=== PATIENT | male | born 1990 | race Caucasian/White ===

== ENCOUNTER 2018-12-11 12:07 | Emergency (ER) | payer OTHER ==
[~2018-12-11] VITALS: Ht 185.4 cm; Wt 77.1 kg
[~2018-12-11 12:07] MED LIST: FLEXERIL PO; HYDROCODON-ACE1 EAC7 PO; HYDROCODON-ACE1 EACH PO; HYDROCODONE-AP1 EAC6 PO; IBUPROFEN 800800 M1 PO; IBUPROFEN 800800 MG PO; MEDROLDOSEPACK PO; NOHOMEMEDICATIONS; NORCO 5-325 TA1 EAC1 PO; NORCO 5-325 TA1 EACH PO; PERCOCET 5-3251 EACH PO; ROBAXIN500 MG PO; ULTRAM 50MG TAB50 MG PO
[2018-12-11 13:25] VITALS: BP 122/54
== END 2018-12-11 13:25 | disposition short-term general hospital (02) ==
LOC: M.ERS 12:07
DX: S01.312A Laceration without foreign body of left ear, initial encounter (principal); F17.200 Nicotine dependence, unspecified, uncomplicated; W54.0XXA Bitten by dog, initial encounter; Y92.89 Other specified places as the place of occurrence of the external cause; Y93.89 Activity, other specified; Y99.8 Other external cause status

== ENCOUNTER 2019-11-21 15:27 | Emergency (ER) | payer OTHER ==
[~2019-11-21] VITALS: Ht 182.9 cm; Wt 79.4 kg
[2019-11-21 15:48] LABS: URINE BILIRUBIN NEGATIVE (Negative); URINE BLOOD NEGATIVE (Negative); URINE CLARITY CLEAR; URINE COLOR YELLOW; URINE GLUCOSE-RANDOM NEGATIVE (Negative); URINE KETONES NEGATIVE (Negative); URINE LEUKOCYTES-REFLEX NEGATIVE (Negative); URINE NITRITE-REFLEX NEGATIVE (Negative); URINE PROTEIN NEGATIVE (Negative); URINE UROBILINOGEN 0.2 E.U./dl (0.2-1.0)
[2019-11-21 16:01] LABS: AMP/METHAMP Negative (Negative); BARBITURATES Negative (Negative); BENZODIAZEPINES Negative (Negative); COCAINE Negative (Negative); METHADONE Negative (Negative); OPIATES Negative (Negative); PCP Negative (Negative); THC POSITIVE (Negative)
[2019-11-21 16:13] LABS: ABSOLUTE BASOPHILS 0.1 thou/uL (0.0-0.2); ABSOLUTE EOSINOPHILS 0.1 thou/uL (0.0-0.7); ABSOLUTE LYMPHOCYTES 2.2 thou/uL (0.8-5.3); ABSOLUTE MONOCYTES 0.6 thou/uL (0.0-1.2); ABSOLUTE NEUTROPHILS 5.8 thou/uL (1.6-8.1); EOSINOPHILS 0.9 %; HEMATOCRIT 42.2 % (42.0-52.0); HEMOGLOBIN 14.8 gm/dL (14.0-18.0); LYMPHOCYTES 25.1 %; MCH 33.4 pg (26.0-34.0); MCV 95.2 fL (80.0-100.0); MONOCYTES 6.9 %; MPV 7.9 fl. (7.2-11.1); NUCLEATED RBCS 0 /100WBC; PLATELET COUNT* 247 thou/uL (150-400); POLYS 66.1 %; RBC 4.43 mil/uL (4.50-6.00); RDW-CV 12.9 % (10.5-14.5); WBC 8.8 thou/uL (4.0-11.0)
[2019-11-21 16:31] LABS: CALCIUM 9.3 mg/dL (8.5-10.1); POTASSIUM 4.7 mmol/L (3.5-5.1)
[2019-11-21 16:36] LABS: ACETAMINOPHEN < 2 ug/mL (10-30); ALBUMIN 4.3 g/dL (3.4-5.0); ALCOHOL < 10 mg/dL (<10); SALICYLATE 5.5 mg/dL (2.8-20.0); TOTAL BILIRUBIN 0.6 mg/dL (<0.1-1.0); TOTAL PROTEIN 8.2 g/dL (6.4-8.2)
[2019-11-21 21:55] VITALS: BP 120/95
== END 2019-11-21 21:55 ==
LOC: M.ERS 15:27
PROVIDERS: Emergency Medicine
DX: R45.851 Suicidal ideations (principal); F17.200 Nicotine dependence, unspecified, uncomplicated; Z98.890 Other specified postprocedural states

== ENCOUNTER 2020-12-20 19:33 | Emergency (ER) | payer OTHER ==
[~2020-12-20] VITALS: Ht 182.9 cm; Wt 77.1 kg
[2020-12-20] MEDS ORDERED: REMERON15 M2 PO (19:50)
[2020-12-20 20:17] LABS: URINE BILIRUBIN NEGATIVE (Negative); URINE BLOOD NEGATIVE (Negative); URINE CLARITY CLEAR; URINE COLOR YELLOW; URINE GLUCOSE-RANDOM NEGATIVE (Negative); URINE KETONES NEGATIVE (Negative); URINE LEUKOCYTES NEGATIVE (Negative); URINE NITRITE NEGATIVE (Negative); URINE PROTEIN NEGATIVE (Negative); URINE UROBILINOGEN 0.2 E.U./dl (0.2-1.0)
[2020-12-20 20:27] LABS: AMP/METHAMP Negative (Negative); BARBITURATES Negative (Negative); BENZODIAZEPINES Negative (Negative); COCAINE Negative (Negative); METHADONE Negative (Negative); OPIATES Negative (Negative); PCP Negative (Negative); THC POSITIVE (Negative)
[2020-12-20 20:46] LABS: ABSOLUTE EOSINOPHILS 0.2 thou/uL (0.0-0.7); ABSOLUTE LYMPHOCYTES 2.4 thou/uL (0.8-5.3); ABSOLUTE MONOCYTES 0.8 thou/uL (0.0-1.2); ABSOLUTE NEUTROPHILS 7.6 thou/uL (1.6-8.1); BASOPHILS 0.4 %; EOSINOPHILS 1.8 %; HEMATOCRIT 39.9 % (42.0-52.0); HEMOGLOBIN 13.4 gm/dL (14.0-18.0); MCH 31.4 pg (26.0-34.0); MCHC 33.5 g/dL (28.0-37.0); MCV 93.7 fL (80.0-100.0); MONOCYTES 7.1 %; MPV 7.5 fl. (7.2-11.1); NUCLEATED RBCS 0 /100WBC; PLATELET COUNT* 263 thou/uL (150-400); POLYS 68.7 %; RBC 4.26 mil/uL (4.50-6.00); RDW-CV 13.5 % (10.5-14.5)
[2020-12-20 20:50] LABS: CALCIUM 9.2 mg/dL (8.5-10.1); CREATININE 0.9 mg/dL (0.6-1.3); POTASSIUM 3.6 mmol/L (3.5-5.1)
[2020-12-20 20:54] LABS: ALBUMIN 3.9 g/dL (3.4-5.0); TOTAL BILIRUBIN 0.3 mg/dL (<0.1-1.0); TOTAL PROTEIN 7.6 g/dL (6.4-8.2)
[2020-12-20 21:01] LABS: ACETAMINOPHEN < 2 ug/mL (10-30); ALCOHOL < 10 mg/dL (<10); SALICYLATE 4.5 mg/dL (2.8-20.0)
[2020-12-20 22:40] VITALS: BP 157/90
== END 2020-12-20 23:05 | disposition home or self-care (01) ==
LOC: M.ERS 19:33
PROVIDERS: Emergency Medicine
DX: S60.222A Contusion of left hand, initial encounter (principal); S60.221A Contusion of right hand, initial encounter; R45.851 Suicidal ideations; F17.210 Nicotine dependence, cigarettes, uncomplicated; Z79.899 Other long term (current) drug therapy; W22.8XXA Striking against or struck by other objects, initial encounter; Y93.89 Activity, other specified; Y92.89 Other specified places as the place of occurrence of the external cause; Y99.9 Unspecified external cause status

== ENCOUNTER 2020-12-28 15:52 | Emergency (ER) | payer OTHER ==
[~2020-12-28] VITALS: Ht 182.9 cm; Wt 77.1 kg
[~2020-12-28 15:52] MED LIST changes: +REMERON15 M2 PO
[2020-12-28] MEDS ORDERED: RISPERDAL 1 MG T1 MG PO (16:07)
[2020-12-28 16:32] LABS: ABSOLUTE EOSINOPHILS 0.1 thou/uL (0.0-0.7); ABSOLUTE LYMPHOCYTES 2.1 thou/uL (0.8-5.3); ABSOLUTE MONOCYTES 0.8 thou/uL (0.0-1.2); ABSOLUTE NEUTROPHILS 4.3 thou/uL (1.6-8.1); BASOPHILS 0.6 %; HEMOGLOBIN 14.1 gm/dL (14.0-18.0); LYMPHOCYTES 28.4 %; MCH 31.5 pg (26.0-34.0); MCHC 33.5 g/dL (28.0-37.0); MCV 94.2 fL (80.0-100.0); MONOCYTES 10.9 %; MPV 7.5 fl. (7.2-11.1); NUCLEATED RBCS 0 /100WBC; PLATELET COUNT* 245 thou/uL (150-400); POLYS 58.1 %; RBC 4.46 mil/uL (4.50-6.00); RDW-CV 13.6 % (10.5-14.5); WBC 7.4 thou/uL (4.0-11.0)
[2020-12-28 16:46] LABS: ALBUMIN 4.2 g/dL (3.4-5.0); TOTAL BILIRUBIN 0.3 mg/dL (<0.1-1.0); TOTAL PROTEIN 8.1 g/dL (6.4-8.2)
[2020-12-28 16:49] LABS: URINE BILIRUBIN NEGATIVE (Negative); URINE BLOOD NEGATIVE (Negative); URINE CLARITY CLEAR; URINE COLOR YELLOW; URINE GLUCOSE-RANDOM NEGATIVE (Negative); URINE KETONES NEGATIVE (Negative); URINE LEUKOCYTES-REFLEX NEGATIVE (Negative); URINE NITRITE-REFLEX NEGATIVE (Negative); URINE PROTEIN NEGATIVE (Negative); URINE UROBILINOGEN 0.2 E.U./dl (0.2-1.0)
[2020-12-28 16:55] LABS: AMP/METHAMP Negative (Negative); BARBITURATES Negative (Negative); BENZODIAZEPINES Negative (Negative); COCAINE Negative (Negative); METHADONE Negative (Negative); OPIATES Negative (Negative); PCP Negative (Negative); THC POSITIVE (Negative)
[2020-12-28 17:06] LABS: ACETAMINOPHEN < 2 ug/mL (10-30); ALCOHOL < 10 mg/dL (<10); SALICYLATE 4.5 mg/dL (2.8-20.0)
[2020-12-31] MEDS ORDERED: ZYPREXA 5 MG TAB5 M2 PO (20:54)
[2020-12-31 22:20] VITALS: BP 125/87
== END 2020-12-31 22:20 | disposition still patient (30) ==
LOC: M.ERS 15:52
PROVIDERS: Emergency Medicine Emergency Medical Services
DX: F32.9 Major depressive disorder, single episode, unspecified (principal); Z20.822 Contact with and (suspected) exposure to COVID-19; F29 Unspecified psychosis not due to a substance or known physiological condition; R45.851 Suicidal ideations; Z79.899 Other long term (current) drug therapy

== ENCOUNTER 2021-01-17 20:14 | Emergency (ER) | payer OTHER ==
[~2021-01-17] VITALS: Ht 182.9 cm; Wt 85.7 kg
[~2021-01-17 20:14] MED LIST changes: +RISPERDAL 1 MG T1 MG PO; +ZYPREXA 5 MG TAB5 M2 PO
[2021-01-17] MEDS ORDERED: SEROQUEL 25 MG25 MG PO (20:25)
[2021-01-17] MEDS ORDERED: DESYREL150 MG PO (20:26)
[2021-01-17] MEDS ORDERED: QUETIAPINE FUM200 MG PO (20:26)
[2021-01-17] MEDS ORDERED: LEXAPRO 10 MG T10 M1 PO (20:26)
[2021-01-17 20:58] LABS: ABSOLUTE BASOPHILS 0.1 thou/uL (0.0-0.2); ABSOLUTE EOSINOPHILS 0.2 thou/uL (0.0-0.7); ABSOLUTE LYMPHOCYTES 1.6 thou/uL (0.8-5.3); ABSOLUTE MONOCYTES 1.1 thou/uL (0.0-1.2); ABSOLUTE NEUTROPHILS 11.6 thou/uL (1.6-8.1); BASOPHILS 0.5 %; EOSINOPHILS 1.5 %; HEMATOCRIT 38.8 % (42.0-52.0); HEMOGLOBIN 13.2 gm/dL (14.0-18.0); LYMPHOCYTES 10.8 %; MCH 31.7 pg (26.0-34.0); MCHC 34.1 g/dL (28.0-37.0); MCV 93.1 fL (80.0-100.0); MONOCYTES 7.8 %; MPV 7.9 fl. (7.2-11.1); NUCLEATED RBCS 0 /100WBC; PLATELET COUNT* 265 thou/uL (150-400); POLYS 79.4 %; RBC 4.17 mil/uL (4.50-6.00); RDW-CV 12.8 % (10.5-14.5); WBC 14.6 thou/uL (4.0-11.0)
[2021-01-17 21:07] LABS: CALCIUM 8.8 mg/dL (8.5-10.1); POTASSIUM 3.7 mmol/L (3.5-5.1)
[2021-01-17 21:16] LABS: ALBUMIN 4.1 g/dL (3.4-5.0); TOTAL BILIRUBIN 0.4 mg/dL (<0.1-1.0); TOTAL PROTEIN 7.6 g/dL (6.4-8.2)
[2021-01-17 21:18] LABS: ACETAMINOPHEN < 2 ug/mL (10-30); SALICYLATE 4.9 mg/dL (2.8-20.0)
[2021-01-18 01:01] VITALS: BP 108/64
--- NOTE | 2021-01-18 09:32 | EKG ---
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: [facility] : 1990 Requested By: Massiel Perez Order Number: [id number] MD: Main Torres Measurements Intervals [place] Rate: 89 P: 81 MS: 138 QRS: 81 QRSD: 111 T: 13 QT: 376 QTc: 458 Interpretive Statements Sinus rhythm Biatrial enlargement RSR' in V1 or V2, right VCD No previous ECG available for comparison Electronically Signed On 01-18-2021 9:32:47 DEVELOPMENT REPRESENTATIVE by Mani Torres [email or web address] <ELECTRONICALLY SIGNED> By: Mani Torres MD, [facility] 01/18/21931 46 46 Mani Torres MD, [facility] /EPI
--- NOTE | 2021-01-18 09:32 | EKG ---
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 01/18/21 0932 18 18 Mani Torres MD, [facility] /EPI
== END 2021-01-18 01:01 | disposition home or self-care (01) ==
LOC: M.ERS 20:14
PROVIDERS: Emergency Medicine
DX: F15.10 Other stimulant abuse, uncomplicated (principal); R07.89 Other chest pain; Z79.899 Other long term (current) drug therapy

== ENCOUNTER 2021-01-18 18:36 | Inpatient (IN) | payer OTHER ==
[~2021-01-18] VITALS: Ht 182.9 cm; Wt 76.7 kg
--- NOTE | ~2021-01-18 | EEG ---
[address] [address] EEG STUDY REPORT Name: DARCY SKINNER Room: [address] IN M.R.#: [id number] Admission: 01/21/21 Attend Phys: Denita Garber MD Discharge: 01/23/21 Date of : [birth year] Report #: [id number] THIS REPORT FOR: cc: FAM - No family physician/PCP FAM - No family physician/PCP ~ Kevin Sandoval MD DATE OF SERVICE: 01/21/2021 The patient's EEG was done by placing the electrodes by standard 10-20 system of electrode placement. Both referential and sequential montages were used for recording. Background activity in this patient's EEG is about 7 Hz, but most of the time is slower because it is intermixed with slowing on both sides. The patient becomes sleepy and that is associated with bilateral slowing and vertex sharp waves. Throughout the record, no active epileptiform activity was noticed. IMPRESSION: The patient's EEG is intermixed with slowing on both sides. That is a nonspecific abnormality, which can occur with encephalopathy, effect of psychotropic medication, dementia, etc. Clinical correlation is recommended. By: [id number] Sandoval MD /nt
[~2021-01-18 18:36] MED LIST changes: +DESYREL150 MG PO; +LEXAPRO 10 MG T10 M1 PO; +QUETIAPINE FUM200 MG PO; +SEROQUEL 25 MG25 MG PO
[2021-01-18 18:45] VITALS: BP 167/81
[2021-01-18 19:30] LABS: ABSOLUTE EOSINOPHILS 0.2 thou/uL (0.0-0.7); ABSOLUTE LYMPHOCYTES 1.5 thou/uL (0.8-5.3); ABSOLUTE MONOCYTES 0.8 thou/uL (0.0-1.2); ABSOLUTE NEUTROPHILS 6.6 thou/uL (1.6-8.1); BASOPHILS 0.4 %; EOSINOPHILS 1.8 %; HEMOGLOBIN 12.4 gm/dL (14.0-18.0); LYMPHOCYTES 16.6 %; MCH 32.3 pg (26.0-34.0); MCHC 34.6 g/dL (28.0-37.0); MCV 93.6 fL (80.0-100.0); MONOCYTES 8.3 %; MPV 7.4 fl. (7.2-11.1); NUCLEATED RBCS 0 /100WBC; PLATELET COUNT* 234 thou/uL (150-400); POLYS 72.9 %; RBC 3.84 mil/uL (4.50-6.00); RDW-CV 13.3 % (10.5-14.5); WBC 9.1 thou/uL (4.0-11.0)
[2021-01-18 19:38] LABS: CALCIUM 9.1 mg/dL (8.5-10.1); CREATININE 0.9 mg/dL (0.6-1.3); POTASSIUM 4.6 mmol/L (3.5-5.1)
[2021-01-18 19:47] LABS: ALBUMIN 3.8 g/dL (3.4-5.0); TOTAL BILIRUBIN 0.4 mg/dL (<0.1-1.0)
[2021-01-18 19:54] LABS: URINE BILIRUBIN NEGATIVE (Negative); URINE BLOOD 3+ (Negative); URINE CLARITY HAZY; URINE COLOR YELLOW; URINE GLUCOSE-RANDOM NEGATIVE (Negative); URINE KETONES NEGATIVE (Negative); URINE LEUKOCYTES-REFLEX NEGATIVE (Negative); URINE NITRITE-REFLEX NEGATIVE (Negative); URINE PROTEIN NEGATIVE (Negative); URINE SPECIFIC GRAVITY <= 1.005 (1.005-1.030); URINE UROBILINOGEN 0.2 E.U./dl (0.2-1.0)
[2021-01-18 20:03] LABS: AMP/METHAMP Negative (Negative); BARBITURATES Negative (Negative); BENZODIAZEPINES Negative (Negative); COCAINE Negative (Negative); METHADONE Negative (Negative); OPIATES Negative (Negative); PCP Negative (Negative); THC POSITIVE (Negative)
[2021-01-18 20:04] LABS: SQUAMOUS NONE SEEN /LPF (0-3)
[2021-01-18 20:05] LABS: URINE RBC None Seen /HPF (0-2); URINE WBC-REFLEX None Seen /HPF (0-5)
[2021-01-18 20:06] LABS: BACTERIA-REFLEX 1-9 Few /HPF (None Seen); CASTS None Seen /LPF (None Seen); CRYSTALS None Seen /LPF (None Seen); MUCUS None Seen strn/LPF (None Seen)
[2021-01-18 20:08] LABS: SALICYLATE 5.2 mg/dL (2.8-20.0)
[2021-01-18 20:09] LABS: ACETAMINOPHEN < 2 ug/mL (10-30)
[2021-01-18 23:39] VITALS: BP 140/73
[2021-01-19] VITALS: BP 119/63
[2021-01-19 04:00] VITALS: BP 128/65
[2021-01-19 08:00] VITALS: BP 115/71
--- NOTE | 2021-01-19 08:00 | NUR ---
ASSUMED CARE OF PATIENT, ASSESSMENT COMPLETED DEFER TO COMPUTER CHARTING. ELECTRICIAN RECTIFIER MAINTENANCE TRACING SA. ALERT ORIENTED, REPORTING HAVING GENERALIZED DISCOMFORT. DENIES HEARING ANY VOICES, HALLUCINATIONS OR FEELING OF HURTING SELF OR OTHERS AT THIS TIME. 1:1 SITTER AT BEDSIDE FOR SAFETY. WILL MONITOR.
[2021-01-19 10:30] LABS: ABSOLUTE EOSINOPHILS 0.2 thou/uL (0.0-0.7); ABSOLUTE LYMPHOCYTES 1.6 thou/uL (0.8-5.3); ABSOLUTE MONOCYTES 0.7 thou/uL (0.0-1.2); ABSOLUTE NEUTROPHILS 3.9 thou/uL (1.6-8.1); BASOPHILS 0.6 %; EOSINOPHILS 3.1 %; HEMATOCRIT 35.4 % (42.0-52.0); HEMOGLOBIN 11.9 gm/dL (14.0-18.0); LYMPHOCYTES 24.7 %; MCHC 33.6 g/dL (28.0-37.0); MCV 95.3 fL (80.0-100.0); MONOCYTES 10.8 %; MPV 7.9 fl. (7.2-11.1); NUCLEATED RBCS 0 /100WBC; PLATELET COUNT* 232 thou/uL (150-400); POLYS 60.8 %; RBC 3.72 mil/uL (4.50-6.00); RDW-CV 13.7 % (10.5-14.5); WBC 6.4 thou/uL (4.0-11.0)
[2021-01-19 10:54] LABS: ALBUMIN 3.2 g/dL (3.4-5.0); ALKALINE PHOSPHATASE 38 U/L (46-116); ANION GAP 8 mmol/L (7-16); BUN 12 mg/dL (7-18); CALCIUM 8.1 mg/dL (8.5-10.1); CHLORIDE 108 mmol/L (98-107); CO2 26 mmol/L (21-32); CREATININE 0.9 mg/dL (0.6-1.3); GLUCOSE 96 mg/dL (70-99); POTASSIUM 4.8 mmol/L (3.5-5.1); SGOT 1845 U/L (15-37); SGPT 522 U/L (30-65); SODIUM 142 mmol/L (136-145); TOTAL BILIRUBIN 0.3 mg/dL (<0.1-1.0); TOTAL PROTEIN 6.2 g/dL (6.4-8.2)
--- NOTE | 2021-01-19 14:11 | EKG ---
[place] [address] ELECTROCARDIOGRAM REPORT Name: DARCY SKINNER Room: [address]#: [id number] Admission: 01/18/21 Attend Phys: Denita Garber, Discharge: Date of : [birth year] Date of Service: 01/18/211935 Report #: [id number] THIS REPORT FOR: //name// [facility] ED Test Date: 2021-01-18 Test Time: 19:36:28 Pat Name: DARCY SKINNER Department: Room: [facility] Gender: M Medical Transcription: [place] : 1990 Requested By: Massiel Perez Order Number: [id number] MD: Bienvenido Devries Measurements Intervals [place] Rate: 81 P: 77 [place]: 130 QRS: 84 QRSD: 106 T: 16 QT: 375 QTc: 436 Interpretive Statements Sinus rhythm Probable left atrial enlargement RSR' in V1 or V2, right VCD or RVH Compared to ECG 01/17/2021 20:47:58 Right ventricular hypertrophy now present Electronically Signed On 01-19-2021 14:11:08 SALES TRADER by Bienvenido Devries [email or web address] <ELECTRONICALLY SIGNED> By: Bienvenido Devries MD, FACC 01/19/21 1411 35 35 Bienvenido Devries MD, FACC /EPI
[2021-01-19 16:00] VITALS: BP 133/73
--- NOTE | 2021-01-19 18:17 | NUR ---
HR DIRECTOR TRACKING WITH NO CHANGE IN RHYTHM. IV FLUID BOLUS/FLUIDS INFUSING PER ORDERS. SUICIDE PERCUATIONS DC'D. ASSESSMENT REMAIND UNCHANGED, CONTINUES TO DENY FEELINGS OF HURTING SELF OR OTHERS HAVING ANY HALUCINATIONS VISUAL OR AUDITORY. COOPERATIVE, ANXIOUS AT TIMES. 1:1 DC'D EARLIER PER ORDERS. CALL LIGHT WITHIN REACH. TOLERATING DIET. WILL CONTINUE WITH PLAN OF CARE.
[2021-01-19 20:00] VITALS: BP 143/62
[2021-01-20] VITALS: BP 132/63
[2021-01-20 04:00] VITALS: BP 141/58
[2021-01-20 05:06] LABS: HEMATOCRIT 35.4 % (42.0-52.0); HEMOGLOBIN 11.9 gm/dL (14.0-18.0); MCH 31.8 pg (26.0-34.0); MCHC 33.6 g/dL (28.0-37.0); MCV 94.6 fL (80.0-100.0); MPV 8.3 fl. (7.2-11.1); RBC 3.74 mil/uL (4.50-6.00); RDW-CV 13.3 % (10.5-14.5); WBC 8.6 thou/uL (4.0-11.0)
[2021-01-20 05:19] LABS: ALBUMIN 2.7 g/dL (3.4-5.0); ALKALINE PHOSPHATASE 34 U/L (46-116); ANION GAP 8 mmol/L (7-16); BUN 12 mg/dL (7-18); CHLORIDE 110 mmol/L (98-107); CO2 25 mmol/L (21-32); CREATININE 0.8 mg/dL (0.6-1.3); GLUCOSE 90 mg/dL (70-99); MAGNESIUM 1.9 mg/dL (1.8-2.4); POTASSIUM 4.2 mmol/L (3.5-5.1); SGOT 1248 U/L (15-37); SGPT 440 U/L (30-65); SODIUM 143 mmol/L (136-145); TOTAL BILIRUBIN 0.1 mg/dL (<0.1-1.0); TOTAL PROTEIN 5.6 g/dL (6.4-8.2)
[2021-01-20 07:07] LABS: HEPATITIS B SURFACE AG Negative (Negative)
--- NOTE | 2021-01-20 07:45 | NUR ---
Shift uneventful. Pt calm and cooperative throughout shift. Pt is aox4, running SA on telemetry, respirations are even and unlabored on room air. Pt is medically stable at this time.
[2021-01-20 08:15] VITALS: BP 137/84
[2021-01-20 12:00] VITALS: BP 142/73
[2021-01-20 16:00] VITALS: BP 131/69
--- NOTE | 2021-01-20 20:08 | NUR ---
Pt up ad satinder, ambulating frequently in hallway. VSS. C/O pain and swelling to L jaw. States "had jaw busted recently, and probably a have a bad tooth." Experienced some relief with ibuprofen, tramadol, and ice to jaw. Will continue to monitor.
[2021-01-20 20:15] VITALS: BP 130/73
[2021-01-21 00:18] VITALS: BP 145/74
[2021-01-21 04:35] LABS: HEMATOCRIT 34.2 % (42.0-52.0); HEMOGLOBIN 11.4 gm/dL (14.0-18.0); MCH 31.7 pg (26.0-34.0); MCHC 33.4 g/dL (28.0-37.0); MCV 94.9 fL (80.0-100.0); MPV 8.1 fl. (7.2-11.1); RBC 3.6 mil/uL (4.50-6.00); RDW-CV 13.2 % (10.5-14.5); WBC 8.2 thou/uL (4.0-11.0)
[2021-01-21 04:40] VITALS: BP 151/88
[2021-01-21 04:46] LABS: PROTIME 10.3 Seconds (9.20-11.50)
--- NOTE | 2021-01-21 04:49 | NUR ---
PT SLEPT ON AND OFF THIS SHIFT. ASSESSMENT DOCUMENTED. MEDS GIVEN PER E-MAR. IV PATENT, FLUIDS INFUSING. PAIN MEDS GIVEN PER E-MAR FOR LEFT JAW PAIN AND SWELLING. PT ABLE TO MAKE NEEDS KNOWN. WILL CONTINUE WITH PLAN OF CARE.
[2021-01-21 04:57] LABS: ALBUMIN 2.9 g/dL (3.4-5.0); ALKALINE PHOSPHATASE 39 U/L (46-116); ANION GAP 6 mmol/L (7-16); BUN 12 mg/dL (7-18); CALCIUM 8.4 mg/dL (8.5-10.1); CHLORIDE 105 mmol/L (98-107); CO2 29 mmol/L (21-32); CREATININE 0.9 mg/dL (0.6-1.3); GLUCOSE 93 mg/dL (70-99); MAGNESIUM 1.8 mg/dL (1.8-2.4); POTASSIUM 3.9 mmol/L (3.5-5.1); SGOT 841 U/L (15-37); SGPT 448 U/L (30-65); SODIUM 140 mmol/L (136-145); TOTAL BILIRUBIN 0.3 mg/dL (<0.1-1.0); TOTAL PROTEIN 5.8 g/dL (6.4-8.2)
[2021-01-21 08:30] VITALS: BP 151/88
[2021-01-21 12:17] VITALS: BP 141/81
--- NOTE | 2021-01-21 15:18 | NUR ---
Pt is A&O. Resides at home with parents. Independent. No DME. No hx of HH or SNF. Goal is home at dc. Med assist following, Pt is medicaid pending. Anticipate dc tomorrow.
--- NOTE | 2021-01-21 15:51 | CON ---
[address] [address] CONSULTATION Name: DARCY SKINNER Room: [address] IN M.R.#: [id number] Admission: 01/21/21 Attend Phys: Denita Garber MD Discharge: Date of : [birth year] Report #: [id number] THIS REPORT FOR: cc: FAM - No family physician/PCP FAM - No family physician/PCP ~ Afshan Escoto MD DATE OF SERVICE: 01/19/2021 REASON FOR CONSULT: Elevated liver enzymes. HISTORY OF PRESENT ILLNESS: This is a 30-year-old male with history of depression and psychosis as he is both on psychotropics and antidepressant. The patient had presented to hospital with complaint of abdominal pain and suicidal thoughts. He apparently has used amphetamines. During his ER visit, he was found to have elevated transaminases in a couple 1000 range. He denies overdosing of any of his meds. His urine drug screen is negative for salicylates and Tylenol. The patient reports that his liver is hurting, but points to the left side of his abdomen. As soon as I mentioned to him that the liver is in the right side, he said well, it feels like it is trickling in the right side as well. PAST MEDICAL HISTORY: Significant for history of jaw fracture, psychosis, drug abuse, gallstones, and depression. ALLERGIES: No known drug allergy. MEDICATIONS: Please refer to MAR. SOCIAL HISTORY: The patient denies tobaccoism, but drinks alcohol and uses drugs. FAMILY HISTORY: Noncontributory. PHYSICAL EXAMINATION: VITAL SIGNS: Reveals blood pressure of 128/65, respirations 20, pulse 89, temperature 97.6. LUNGS: Clear. CARDIOVASCULAR: Regular. ABDOMEN: Soft, nontender, nondistended. Bowel sounds are positive. NEUROLOGIC: The patient is alert and oriented x 3. LABORATORY DATA: Labs reveal sodium of 142, potassium 4.8, BUN is 12, creatinine is 0.9, glucose is 96. AST is 1845, down from 3323 on 01/17; alkaline phosphatase is 38; ALT is 522, down from 680. Ammonia level is below [facility] [address] [place] [address] CONSULTATION Name: DARCY SKINNER Room: [address] IN [facility]#: [id number] Admission: 01/21/21 Attend Phys: Denita Garber MD Discharge: Date of : [birth year] Report #: [id number]. Total bilirubin is 0.3, lipase is 145. UDS was positive for marijuana, but negative for amphetamines. WBC is 6.4, hemoglobin is 11.9 and platelet is 232. Viral hepatitis serology is pending. IMAGING: CT of abdomen and pelvis was obtained on 01/17. This was essentially unremarkable. ASSESSMENT AND PLAN: The patient with suicidal ideation who has transaminitis with LFTs in few 1000 range, which have been downtrending. The hepatic function is intact as patient's platelets, glucose and bilirubin levels are within normal limits. INR was not obtained. The patient appears to be a gamy and smiles and does not tell me if he really took overdose of his current medication or not. We will continue to monitor the patient as the patient has intact hepatic function and transaminases are downtrending. I would not recommend any intervention at this time. The patient is on suicide watch. He may benefit from psychiatric admission. <ELECTRONICALLY SIGNED> By: Afshan Escoto MD 01/21/21 1551 1125 1220Afshan Escoto MD /nt
[2021-01-21 16:00] VITALS: BP 140/70
--- NOTE | 2021-01-21 18:42 | NUR ---
ASSUMED PT CARE AT 0730. PT IS A&OX4, PLEASANT AND UP AD XAVIER. ASSESSMENT COMPLETED AND MEDICATIONS ADMINISTERED ORDERED. PT HAS TOOTH PAIN AND THE JAW IS SWOLLEN ON THE RIGHT SIDE. PRN PAIN MED GIVEN WITH SOME RELIEF. PT TO START ON ANTIBIOTICS TONIGHT. PT DENIES ANY OTHER CONCERNS AT THIS TIME. EDUCATED PT ON PLAN OF CARE.
[2021-01-21 21:00] VITALS: BP 140/70
[2021-01-22 00:14] VITALS: BP 152/59
[2021-01-22 04:01] VITALS: BP 146/70
--- NOTE | 2021-01-22 05:25 | NUR ---
No acute event this shift. Pt complains of L jaw pain beginning of shift. PRN pain meds given per jan with partial relief. Ice packed applied. Pt sleep most of the night. Call light within reach, will continue POC.
[2021-01-22 08:55] VITALS: BP 139/61
[2021-01-22 12:00] VITALS: BP 138/63
--- NOTE | 2021-01-22 15:11 | NUR ---
Medicaid pending. Continue to watch labs. Pt up adlib
[2021-01-22 16:13] VITALS: BP 133/59
[2021-01-22 20:00] VITALS: BP 155/82
[2021-01-23 02:31] VITALS: BP 133/58
[2021-01-23 05:48] LABS: ALBUMIN 3.3 g/dL (3.4-5.0); CALCIUM 8.7 mg/dL (8.5-10.1); CREATININE 0.9 mg/dL (0.6-1.3); MAGNESIUM 1.9 mg/dL (1.8-2.4); TOTAL BILIRUBIN 0.6 mg/dL (<0.1-1.0); TOTAL PROTEIN 6.8 g/dL (6.4-8.2)
[2021-01-23 05:58] VITALS: BP 130/73
--- NOTE | 2021-01-23 07:08 | NUR ---
PATIENT HAS SLEPT WELL THROUGHOUT MOST OF THE NIGHT. VSS ON RA. PATIENT UP AD-XAVIER AND STEADY. MEDICATIONS GIVEN ORDERED AND CHARTED. 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 IV IN RIGHT FOREARM-LR @ 150ML/HR. PATIENT INSTRUCTED TO USE CALL LIGHT WHEN NEEDING ASSISTANCE. HOURLY ROUNDS MADE. WILL CONTINUE WITH PLAN OF CARE AND NURSING TO MONITOR.
[2021-01-23 08:00] VITALS: BP 124/61
[2021-01-23] MEDS ORDERED: AMOX TR-K CLV1 EAC4 PO (09:45)
[2021-01-23 11:21] VITALS: BP 130/73
--- NOTE | 2021-01-23 11:31 | NUR ---
ASSUMED CARE OF PATIENT THIS AM AT 0730. PATIENT IS ALERT AND ORIENTED. TELE SHOWS NSR. PATIENT C/O A CONTINUED TOOTHACHE. HIS LEFT JAW IS VISIBLY SWOLLEN. PATIENT MEDICATED X [address] IN TO ROUND AND DISCHARGE ORDERS WERE WRITTEN. IV FLUIDS DISCONTINUED. PATIENT HAS BEEN UP IN THE HALLS INDEPENDENTLY. NO FALLS OR INJURY. PERSONAL BELONGINGS RETURNED TO PATIENT BY SECURITY.
== END 2021-01-23 12:05 | disposition home or self-care (01) | DRG 558 ==
LOC: M.ERS 18:36 → M.TBA-ER 21:43 → M.2W 23:55
PROVIDERS: Emergency Medicine; ADMIT Internal Medicine; ATTEND Internal Medicine
DX: M62.82 Rhabdomyolysis (principal); R45.851 Suicidal ideations; K75.9 Inflammatory liver disease, unspecified; R74.01 Elevation of levels of liver transaminase levels; F28 Other psychotic disorder not due to a substance or known physiological condition; F32.9 Major depressive disorder, single episode, unspecified; F17.210 Nicotine dependence, cigarettes, uncomplicated; F12.90 Cannabis use, unspecified, uncomplicated; F19.10 Other psychoactive substance abuse, uncomplicated; R16.2 Hepatomegaly with splenomegaly, not elsewhere classified; K05.6 Periodontal disease, unspecified; Z20.822 Contact with and (suspected) exposure to COVID-19; Z79.899 Other long term (current) drug therapy

== ENCOUNTER 2021-11-20 10:32 | Emergency (ER) | payer MEDICAID ==
[~2021-11-20] VITALS: Ht 182.9 cm; Wt 78.0 kg
[~2021-11-20 10:32] MED LIST changes: +AMOX TR-K CLV1 EAC4 PO
--- NOTE | 2021-11-20 11:00 | EKG ---
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: : 1990 Requested By: Cairra Young Order Number: [id number] MD: Mani Torres Measurements Intervals [place] Rate: 102 P: 80 [place]: 149 QRS: 90 QRSD: 111 T: 36 QT: 355 QTc: 463 Interpretive Statements Sinus tachycardia PORFIRIO, consider biatrial enlargement Borderline right axis deviation RSR' in V1 or V2, probably normal variant Compared to ECG 01/18/2021 19:36:28 Sinus rate has increased Minor IVCD of the right type persists Electronically Signed On 11-20-2021 11:00:03 SHAFTING CLEANER by Mani Torres [email or web address] <ELECTRONICALLY SIGNED> By: Mani Torres MD, FAC 11/20/21 1100 1037 1037 Mani Torres MD, [facility] /EPI
[2021-11-20 11:05] LABS: ABSOLUTE BASOPHILS 0.1 thou/uL (0.0-0.2); ABSOLUTE EOSINOPHILS 0.1 thou/uL (0.0-0.7); ABSOLUTE LYMPHOCYTES 1.2 thou/uL (0.8-5.3); ABSOLUTE MONOCYTES 1.2 thou/uL (0.0-1.2); ABSOLUTE NEUTROPHILS 7.6 thou/uL (1.6-8.1); BASOPHILS 0.8 %; EOSINOPHILS 0.9 %; HEMATOCRIT 38.1 % (42.0-52.0); HEMOGLOBIN 13.2 gm/dL (14.0-18.0); LYMPHOCYTES 11.7 %; MCH 31.3 pg (26.0-34.0); MCHC 34.6 g/dL (28.0-37.0); MCV 90.4 fL (80.0-100.0); MONOCYTES 11.9 %; MPV 7.3 fl. (7.2-11.1); NUCLEATED RBCS 0 /100WBC; PLATELET COUNT* 242 thou/uL (150-400); POLYS 74.7 %; RBC 4.22 mil/uL (4.50-6.00); RDW-CV 13.7 % (10.5-14.5); WBC 10.2 thou/uL (4.0-11.0)
[2021-11-20 11:44] LABS: CALCIUM 8.9 mg/dL (8.5-10.1); CREATININE 1.1 mg/dL (0.6-1.3); POTASSIUM 4.3 mmol/L (3.5-5.1)
[2021-11-20 11:48] LABS: ALBUMIN 3.9 g/dL (3.4-5.0); TOTAL BILIRUBIN 1.1 mg/dL (<0.1-1.0); TOTAL PROTEIN 8.1 g/dL (6.4-8.2)
[2021-11-20 11:52] LABS: URINE BILIRUBIN NEGATIVE (Negative); URINE BLOOD NEGATIVE (Negative); URINE CLARITY CLEAR; URINE COLOR DARK YELLOW; URINE GLUCOSE-RANDOM NEGATIVE (Negative); URINE KETONES TRACE (Negative); URINE LEUKOCYTES NEGATIVE (Negative); URINE NITRITE NEGATIVE (Negative); URINE PROTEIN TRACE (Negative); URINE SPECIFIC GRAVITY >= 1.030 (1.005-1.030); URINE UROBILINOGEN 0.2 E.U./dl (0.2-1.0)
[2021-11-20 12:15] LABS: AMP/METHAMP POSITIVE (Negative); BARBITURATES Negative (Negative); BENZODIAZEPINES Negative (Negative); COCAINE Negative (Negative); METHADONE Negative (Negative); OPIATES Negative (Negative); PCP Negative (Negative); THC POSITIVE (Negative)
[2021-11-20] MEDS ORDERED: PROAIR HFA8.5 GM INH (13:29)
[2021-11-20 13:41] VITALS: BP 113/64
== END 2021-11-20 13:42 | disposition home or self-care (01) ==
LOC: M.ERS 10:32
PROVIDERS: Physician Assistant
DX: R10.84 Generalized abdominal pain (principal); Z20.822 Contact with and (suspected) exposure to COVID-19; F19.10 Other psychoactive substance abuse, uncomplicated; F20.9 Schizophrenia, unspecified; Z87.442 Personal history of urinary calculi; Z98.890 Other specified postprocedural states; Z79.899 Other long term (current) drug therapy